=== PATIENT | female | born 1995 | race Caucasian/White ===

== ENCOUNTER 2017-09-04 00:29 | Emergency (ER) | payer BC ==
[~2017-09-04] VITALS: Ht 157.5 cm; Wt 41.9 kg
[2017-09-04] MEDS ORDERED: ONDANSETRON ODT 4 MG ONE (00:55)
[2017-09-04] MEDS ORDERED: ONDANSETRON ODT 4 MG PO ONE (01:00)
[2017-09-04 01:20] LABS: BASOPHILS # (AUTO) 0.03 x10^3/uL (0-0.1); BASOPHILS % (AUTO) 1 % (0-1); EOSINOPHILS % (AUTO) 2 % (1-7); LYMPHOCYTES # (AUTO) 2.62 x10^3/uL (1-3.4); LYMPHOCYTES % (AUTO) 40 % (22-44); MD NO; MEAN CORPUSCULAR HEMOGLOBIN 30.2 pg (27.0-34.8); MEAN CORPUSCULAR HGB CONC 33.8 g/dL (32.4-35.8); MEAN CORPUSCULAR VOLUME 89.6 fL (80-100); MEAN PLATELET VOLUME 8.8 fL (7.4-10.4); MONOCYTES # (AUTO) 0.52 x10^3/uL (0.2-0.8); MONOCYTES % (AUTO) 8 % (2-9); NEUTROPHILS # (AUTO) 3.25 x10^3/uL (1.8-6.8); NEUTROPHILS % (AUTO) 50 % (42-75); PLATELET COUNT 253 x10^3/uL (130-400); RED BLOOD COUNT 4.88 x10^6/uL (3.82-5.3); RED CELL DISTRIBUTION WIDTH 12.5 % (9.6-15.2)
[2017-09-04 01:32] LABS: ALBUMIN 4.4 g/dL (3.4-5.0); ANION GAP 4 mmol/L (5-15); CALCIUM 9.3 mg/dL (8.5-10.1); CHLORIDE 109 mmol/L (98-107); CREATININE 0.67 mg/dL (0.55-1.02)
[2017-09-04 02:41] VITALS: BP 108/56
[2017-09-04 02:54] LABS: MICROSCOPIC AUTO
[2017-09-04 02:59] LABS: CULTURE INDICATED? YES
== END 2017-09-04 02:41 | disposition home or self-care (01) ==
LOC: ED 01:16
DX: R11.0 Nausea (principal); K21.9 Gastro-esophageal reflux disease without esophagitis; Z88.1 Allergy status to other antibiotic agents
CPT/HCPCS: 36415; 80048; 81001; 82040; 84703; 85025; 86901; 87086; 99284; Q0162

== ENCOUNTER 2020-11-13 20:45 | Emergency (ER) | payer OTHER ==
[~2020-11-13] VITALS: Ht 157.5 cm; Wt 53.0 kg
--- NOTE | 2020-11-13 21:53 | NUR ---
PT TRANSPORTED TO IMAGING.
[2020-11-13] MEDS ORDERED: LIDODERM 5% PATCH TD ONE ×2 (21:58→22:00)
[2020-11-13] MEDS ORDERED: KETOROLAC 30 MG/1 ML ONE (21:58)
[2020-11-13] MEDS ORDERED: ACETAMINOPHEN 500 MG TABLET ONE (21:59)
[2020-11-13] MEDS ORDERED: KETOROLAC 30 MG/1 ML IM ONE (22:00)
[2020-11-13] MEDS ORDERED: ACETAMINOPHEN 500 MG TABLET PO ONE (22:00)
[2020-11-13 22:46] VITALS: BP 112/82
== END 2020-11-13 22:50 | disposition home or self-care (01) ==
LOC: ED 22:44
DX: S39.012A Strain of muscle, fascia and tendon of lower back, initial encounter (principal); S29.012A Strain of muscle and tendon of back wall of thorax, initial encounter; M25.571 Pain in right ankle and joints of right foot; K21.9 Gastro-esophageal reflux disease without esophagitis; V49.49XA Driver injured in collision with other motor vehicles in traffic accident, initial encounter; Y93.89 Activity, other specified; Y92.410 Unspecified street and highway as the place of occurrence of the external cause; Y99.8 Other external cause status
CPT/HCPCS: 72072; 72110; 73610; 96372; 99284; J1885

== ENCOUNTER 2021-01-08 08:29 | Emergency (ER) | payer OTHER ==
[~2021-01-08] VITALS: Ht 157.5 cm; Wt 54.4 kg
[2021-01-08 08:34] VITALS: BP 122/71
--- NOTE | 2021-01-08 09:30 | NUR ---
PT WALKED TO ROOM GAIT STEADY.
[2021-01-08] MEDS ORDERED: ONDANSETRON ODT 4 MG PO ONE (10:00)
--- NOTE | 2021-01-08 10:04 | NUR ---
PT WAS SHOUTING VERY LOUDLY. THIS RN WALKED INTO ROOM. PT VERBALIZED FRUSTRATION AT STAFF. REFUSED ZOFRAN ODT. LUNGS CTAB. VSS. O2 SAT 97. PT IS HYPERVENTILATING, CRYING, WILL NOT CLEARLY STATE WHAT SHE WANTS.
[2021-01-08] MEDS ORDERED: ONDANSETRON ODT 4 MG ONE (10:14)
== END 2021-01-08 10:20 | disposition home or self-care (01) ==
LOC: ED 10:14
DX: T59.811A Toxic effect of smoke, accidental (unintentional), initial encounter (principal); Y92.821 Forest as the place of occurrence of the external cause
CPT/HCPCS: 93005; 99283